=== PATIENT | female | born 1950 | race Caucasian/White ===

== ENCOUNTER 2016-06-15 11:26 | Emergency (ER) | payer OTHER ==
[~2016-06-15] VITALS: Ht 165.1 cm; Wt 74.4 kg
--- NOTE | ~2016-06-15 | EKG ---
[place] [address] [facility] [place] [address] ELECTROCARDIOGRAM REPORT Name: MACKENZIE JAMES Room #: [facility]#: [id number] Admission: 06/15/16 Attend Phys: Discharge: 06/15/16 Date of : 52 Report #: [id number] THIS REPORT FOR: //name// [facility] ED Test Date: 2016-06-15 Test Time: 12:51:31 Pat Name: MACKENZIE JAMES Department: Room: Gender: F Market Maker: Shawn PAULINO : 1950 Requested By: Yves Ga Order Number: [id number] MD: Jayjay Calixto Measurements Intervals [place] Rate: 66 P: 29 DC: 195 QRS: 21 QRSD: 93 T: 30 QT: 392 QTc: 411 Interpretive Statements Sinus rhythm Nonspecific ST and T-wave abnormality Compared to ECG 03/30/2016 09:06:41 T-wave abnormality now present Electronically Signed On 06-16-2016 9:22:37 [employer] by Jayjay Calixto [email or web address] <ELECTRONICALLY SIGNED> By: Jayjay Calixto MD, [facility] 06/16/16 0922 1251 125 Jayjay Calixto MD, FACC /EPI
[~2016-06-15 11:26] MED LIST: ARMOUR THYROID60 M1 PO; AUGMENTIN 875875 MG PO; COREG6.25 MG PO; DIGOXIN250 MCG PO; PRADAXA150 MG PO; PROMETHAZINE/C118 ML PO; SALINE NOSE SPR45 ML NS; SIMVASTATIN40 MG PO
[2016-06-15 12:32] LABS: ABSOLUTE NEUTROPHILS 1.7 thou/uL (1.4-8.2); BASOPHILS 1.1 % (0.0-2.0); EOSINOPHILS 3.7 % (0.0-3.0); HEMATOCRIT 39.7 % (37.0-47.0); HEMOGLOBIN 13.9 gm/dL (12.0-15.0); LYMPHOCYTES 52.1 % (24.0-44.0); MCH 30.8 pg (26.0-34.0); MCHC 35.1 % (28.0-37.0); PLATELET COUNT 210 thou/uL (150-400); POLYS 34.1 % (36.0-66.0); RBC 4.51 mil/uL (4.20-5.00)
[2016-06-15 12:33] LABS: MANUAL DIFF NO
[2016-06-15] MEDS ORDERED: PRINIVIL20 MG PO (12:33)
[2016-06-15 12:40] LABS: URINE BILIRUBIN NEGATIVE (Negative); URINE BLOOD 1+ (Negative); URINE COLOR YELLOW; URINE GLUCOSE-RANDOM* NEGATIVE (Negative); URINE KETONES NEGATIVE (Negative); URINE NITRITE NEGATIVE (Negative); URINE PROTEIN (DIPSTICK) NEGATIVE (Negative); URINE SPECIFIC GRAVITY >= 1.030 (1.003-1.035); URINE UROBILINOGEN 0.2 E.U./dl (0.2-1.0)
[2016-06-15 12:44] LABS: ANION GAP 9 mmol/L (7-16); BUN 19 mg/dL (7-18); CALCIUM 9.5 mg/dL (8.5-10.1); CHLORIDE 105 mmol/L (98-107); CO2 25 mmol/L (21-32); CREATININE 0.7 mg/dL (0.6-1.3); GLUCOSE 136 mg/dL (70-99); POTASSIUM 3.9 mmol/L (3.5-5.1); SODIUM 139 mmol/L (136-145)
[2016-06-15 12:48] LABS: NT-PRO BRAIN NAT PEPTIDE 49 pg/mL (<300); TROPONIN-I < 0.04 ng/mL (<0.04-0.07)
[2016-06-15 12:49] LABS: CASTS None Seen /LPF (None Seen); SQUAMOUS 0-3 Few /LPF (0-3)
[2016-06-15 12:50] LABS: CALCIUM OXALATE 0-3 Few /LPF (None Seen); URINE WBC 6-15 Few /HPF (0-5)
[2016-06-15 12:51] LABS: RENAL EPITHELIAL CELLS 0-3 Few /LPF (None Seen); TRANSITIONAL EPITHEL CELL 0-3 Few /LPF (None Seen); URINE RBC 3-10 Few /HPF (0-2); WBC CLUMPS Occasional (None Seen)
[2016-06-15] MEDS ORDERED: MACROBID 100 M100 M1 PO (13:39)
[2016-06-15] MEDS ORDERED: DIFLUCAN200 MG PO (13:39)
[2016-06-15 13:57] VITALS: BP 127/66
== END 2016-06-15 14:02 | disposition home or self-care (01) ==
LOC: ER 11:26
PROVIDERS: Nurse Practitioner
DX: N39.0 Urinary tract infection, site not specified (principal); I10 Essential (primary) hypertension; F10.99 Alcohol use, unspecified with unspecified alcohol-induced disorder; Z88.8 Allergy status to other drugs, medicaments and biological substances

== ENCOUNTER → 2016-12-27 | Outpatient (CLI) | payer OTHER ==
[~2016-12-27] MED LIST changes: +DIFLUCAN200 MG PO; +MACROBID 100 M100 M1 PO; +PRINIVIL20 MG PO
== END ==
LOC: RAD 01:14
DX: Z12.31 Encounter for screening mammogram for malignant neoplasm of breast (principal)

== ENCOUNTER → 2016-12-29 | Outpatient (CLI) | payer OTHER, MEDICARE | LOC: ULTRA 04:37 | DX: N63 Unspecified lump in breast (principal) ==

== ENCOUNTER → 2017-08-02 | Outpatient (CLI) | payer OTHER, MEDICARE | LOC: ULTRA 08:03 | DX: I10 Essential (primary) hypertension (principal); K76.0 Fatty (change of) liver, not elsewhere classified ==

== ENCOUNTER → 2018-01-07 | Outpatient (CLI) | payer OTHER, MEDICARE | LOC: RAD 01:58 | DX: Z12.31 Encounter for screening mammogram for malignant neoplasm of breast (principal); I10 Essential (primary) hypertension ==

== ENCOUNTER → 2019-01-31 | Outpatient (CLI) | payer OTHER, MEDICARE | LOC: RAD 01:05 | DX: Z12.31 Encounter for screening mammogram for malignant neoplasm of breast (principal) ==

== ENCOUNTER → 2019-02-06 | Outpatient (CLI) | payer OTHER, MEDICARE | LOC: RAD 02:21 | DX: N60.02 Solitary cyst of left breast (principal) ==

== ENCOUNTER → 2020-05-17 | Outpatient (CLI) | payer OTHER, MEDICARE | LOC: BC 12:09 | PROVIDERS: ATTEND Obstetrics & Gynecology | DX: Z12.31 Encounter for screening mammogram for malignant neoplasm of breast (principal) ==

== ENCOUNTER → 2021-06-13 | Outpatient (CLI) | payer OTHER, MEDICARE | LOC: BC 05-19 15:22 | PROVIDERS: ATTEND Obstetrics & Gynecology | DX: Z12.31 Encounter for screening mammogram for malignant neoplasm of breast (principal) ==